=== PATIENT | female | born 1995 | race Hispanic/Latino ===

== ENCOUNTER 2017-06-07 17:29 | Emergency (ER) | payer OTHER, BC ==
[2017-06-07 17:41] VITALS: BP 148/84; PULSE 84; RESP 17; TEMP 98.2; O2SAT 100
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
== END 2017-06-07 19:35 | disposition home or self-care (01) ==
LOC: H.ER 17:29
DX: M54.9 Dorsalgia, unspecified (principal); V43.52XA Car driver injured in collision with other type car in traffic accident, initial encounter; Y92.410 Unspecified street and highway as the place of occurrence of the external cause